=== PATIENT | female | born 1985 | race Hispanic/Latino ===

== ENCOUNTER 2016-10-01 06:39 | Day surgery (SDC) | payer OTHER ==
[2016-10-01] VITALS (7 sets, daily range): BP systolic 106–135; BP diastolic 51–88; PULSE 82–93; RESP 16–18; O2SAT 94–97
[~2016-10-01] VITALS: Ht 160 cm; Wt 101.5 kg
[~2016-10-01 06:39] MED LIST: CeFAZolin 2 Gm/50 mL D5W IV Premix IV ONE; Lactated Ringer's 1,000 ML IV SCH; PREN-75 PO
[2016-10-01] MEDS ORDERED: Phenylephrine/NS-PF 100 mCg/mL 5 mL Syringe IVPUSH ONE (06:40)
[2016-10-01] MEDS ORDERED: MetoCLOpramide 5 mg/mL 2 mL Inj ONE (06:40)
[2016-10-01] MEDS ORDERED: Dexamethasone 4 mg/mL Inj ONE (06:40)
[2016-10-01] MEDS ORDERED: Ondansetron 2 mg/mL 2 mL Inj ONE (06:40)
[2016-10-01] MEDS ORDERED: fentaNYL-PF 50 mCg/mL 2 mL Inj ONE (06:40)
[2016-10-01] MEDS ORDERED: Propofol 10,000 mCg/mL 20 mL Inj ONE (06:40)
[2016-10-01] MEDS ORDERED: Lactated Ringer's 1,000 ML IV ONE (07:39)
[2016-10-01] MEDS ORDERED: Lactated Ringer's 500 ML IV PRN (08:26)
[2016-10-01] MEDS ORDERED: Lactated Ringer's 1,000 ML IV SCH (08:26)
--- NOTE | 2016-10-01 08:26 | PCM.HPANE ---
Patient Data Surgeon Admitting Provider: Attending Provider:Luis Huber MD Primary Care Physician:Fela Post MD Other Provider:[facility] Reason for Visit Right Forehead Valeria Mass Ht/WT & BMI Height (Feet): 5 Height (Inches): 3 Weight (Kilograms): 101.51 Body Mass Index 39.00 Allergies Coded Allergies: No Known Allergies (Verified , 01/04/05) Past Anesthesia History Anesthesia History: Denies:: Abnormal Airway, Anesthesia Reactions (back pain after epidurals), Difficult Intubation, Fam Anesthesia Reaction, Fam Malignant Hypertherm, Malignant Hyperthermia Diabetes History Hx Diabetes?: No MRSA MRSA: No Medications Hypertension Medication: No Home Meds Incl Beta Phillip: No Reported Medications #103/Iron Fumarate/FA ( Tablet)1 Each Tablet1 Each PO DAILY 09/29/16 Discontinued Reported Medications Pnv95/Ferrous Fumarate/FA ( Multivitamins Tablet)1 Each Tablet1 Each PO DAILY 10/20/14 Discontinued Scripts [Ibuprofen] (Motrin)800 MG TABLET No Conflict [id number] Mg PO Q6H PRN For Pain # 60 TABLET Prov:Rohan Gupta MD 10/22/14 [Hydrocodone/Acetaminophen] ([place] 5-325)1 TAB TABLET No Conflict Check1-2 Tab PO Q4H PRN For Pain #10 TABLET Prov:Rohan Gupta MD 10/22/14 [Docusate Sodium] (Colace)100 MG CAPSULE No Conflict [id number] Mg PO BID #60 CAPSULE Prov:Rohan Gupta MD 10/22/14 History History of ENT Problems?: No HEENT History: Denies:: Abnormal Airway Cataracts Difficult Intubation Dysphagia Glaucoma Hearing Problem Sinus Problem Hx of Heart Problems?: No Cardiovascular History: Denies:: AICD Edema Heart Murmur Hypertension Irregular Heartbeat Pacemaker Hx of Respiratory Problem?: No Respiratory History: Denies:: Asthma COPD Emphysema Oxygen Administration Pneumonia Tuberculosis Use of C-PAP Machine Use of Inhalers / NEBS Hx Neurologic Problems?: No Neurological History: Denies:: CVA Dementia Headaches Multiple Sclerosis Parkinson's Disease Seizures TIA Hx of GI Problems?: Yes Gastrointestinal History: Positive for:: Gastroesphageal Reflux (indigestion off/on for last year) Denies:: Gall Bladder Disease Gastrointestinal Bleeding Heartburn Hepatitis Hiatal Hernia Liver Disease Rectal Bleeding Hx of Problems?: No Genitourinary History: Denies:: Kidney Stones Urinary Tract Infection Female Hx: Denies:: Currently Problems with Breasts? Skin History: Denies:: History Skin Disorders? Pressure Ulcers Hx Musculoskeletal Problems?: Yes Musculoskeletal History: Positive for:: Back Injury (back pain- ) Musculoskeletal Trauma (valeria mass forehead current admission problem) Denies:: Fibromyalgia Joint Replacement Myasthenia Gravis Osteoarthritis Systemic Lupus Hx of Psycho/Social Problems?: No Psycho Social History: Denies:: Anxiety Hx Depression Hx Surgeries?: No (none) Hx Any Other Health Problems?: Yes Other History: Denies:: Cancer Thyroid Disease History Blood Transfusions: Positive for:: Accept Blood Products? Denies:: Blood Transfusions Hx Diabetes: No Hx Alcohol Use: NoAlcoholic Drinks Per Day: rarelyHx Substance Use: No Smoking Status: Never Smoker Have You Smoked inLast 12 mo: No Stop/Bang S-Snoring: Do You Snore Loudly: Yes T-Tired: feel tired, fatigued: No O-Obsered: Observed not breath: No P-Blood Pressure: treated: No B- Body Mass Index > 35 kg/m2: No A- Age over 50: No N- Neck Large Circumference: No G- Gender Male: No DANY Total Score: 1 Risk Assessment Category Category 1A: Patient has history of documented sleep apnea, and HAS NOT received any narcotic, sedative or anesthesia administration during this stay. Category 1B: Patient has history of documented sleep apnea, and HAS received any narcotic , sedative or anesthesia administration during this stay Category 2: Patient has SUSPECTED Obstructive Sleep Apnea, and HAS received any narcotic , sedative or anesthesia administration during this stay. Category 3: Patient has SUSPECTED Obstructive Sleep Apnea and HAS NOT received narcotic, sedative or anesthesia administration during this stay. Category 4: Outpatient in Procedural Areas with known sleep apnea or who screen positive for High Risk via the STOP/BANG questionnaire. Exam Exam General Appearance: Alert, Oriented X3, Cooperative, No Acute Distress HEENT/AIRWAY: MP 2 Lungs: Clear to Auscultation Heart: Exam Unremarkable Plan Impression Patient chart reviewed, patient interviewed and anesthestic plan with risks, benefits, and alternatives discussed, and informed consent obtained. NPO Status: presume full stomach ASA Physical Status: ASA3 Severe Disease Anesthetic Plan: GA Bene/Risks/Altern/Consents: Yes HP Complete Prior to Induction: Yes Caio Apple MD Oct 01, 2016 07:35
[2016-10-01] MEDS ORDERED: EPHEDrine Sulfate 50 mg/mL Inj IVPUSH PRN (08:30)
[2016-10-01] MEDS ORDERED: Dexamethasone 4 mg/mL Inj IVPUSH PRN (08:30)
[2016-10-01] MEDS ORDERED: HYDROmorphone 1 mg/mL Inj IVPUSH PRN (08:30)
[2016-10-01] MEDS ORDERED: fentaNYL-PF 50 mCg/mL 2 mL Inj IVPUSH PRN (08:30)
[2016-10-01] MEDS ORDERED: MetoCLOpramide 5 mg/mL 2 mL Inj IVPUSH PRN (08:30)
[2016-10-01] MEDS ORDERED: Ondansetron 2 mg/mL 2 mL Inj IVPUSH PRN (08:30)
[2016-10-01] MEDS ORDERED: Phenylephrine 10,000 mCg/mL Inj IVPUSH PRN (08:30)
[2016-10-01] MEDS ORDERED: Bupivacaine-MPF 0.25%/EPI 30 mL Inj INJ ONE (08:53)
--- NOTE | 2016-10-01 09:27 | PCM.ANEP1 ---
Post Anesthesia Phase 1 PACU Phase 1 Assessment Vital Signs Vital Signs Date Time Temp Pulse Resp B/P Pulse Ox O2 Delivery O2 Flow Rate FiO2 10/01/16 07:40 36.9 93 17 125/72 97 Room Air Anesthetic Administered: GA Level of Alertness: Awake, talking GALEANO's with Equal Strength: Yes Pain: No Nausea or Vomiting: No Oxygen Delivery: Room Air Lungs: Clear to Auscultation Dermatome Level: Full Sensation Caio Apple MD Oct 01, 2016 09:27
[2016-10-01] MEDS ORDERED: HYDROcodone-APAP 5-325 mg Tablet PO PRN (09:35)
--- NOTE | 2016-10-01 10:16 | OP ---
[address] [address] OPERATIVE REPORT PATIENT: JOSH MERCEDES : 1985 MR#: [id number] ADMIT: 10/01/2016 JOB ID: [id number] DATE OF SURGERY: 10/01/2016 PREOPERATIVE DIAGNOSIS(ES): Right forehead mass. POSTOPERATIVE DIAGNOSIS(ES): Forehead bony mass, likely osteoma. PROCEDURE: 1. Excision of right forehead bony mass 1.5 cm. 2. Layered closure of right forehead defect, total length of layered closure 2 cm. SURGEON: Luis Huber MD DOFFER: None. ANESTHESIA: General anesthesia. ESTIMATED BLOOD LOSS: Minimal. COMPLICATIONS: None apparent. SPECIMEN: Right forehead mass to Pathology. INDICATIONS FOR PROCEDURE: This is a 31-year-old female patient with a slowly enlarging right forehead mass. The patient also has pain and headaches arising out of this mass. At this point, excision is indicated for tissue diagnosis and for symptom relief. PROCEDURES AND FINDINGS: The patient was identified in the preoperative area. The border of this mass was palpated and marked. The patient was then taken back to the operating room and placed supine on the operating table. Appropriate time-outs were taken. General anesthesia was induced smoothly. The patient was then prepped and draped in the usual sterile manner. Local anesthesia was then infiltrated to the surgical site consisting of 0.25% Marcaine with epinephrine. A transverse incision was then made just superior to this mass. The incision was approximately 2 cm long. The incision was then deepened down to the underlying frontalis muscle with electrocautery. I then elevated a small amount of the surrounding skin flap off of the frontalis muscle. The frontalis muscle was then split along its fiber with a pair of tenotomy scissors bluntly. The muscle was then retracted medially and laterally out of the way revealing a bony mass. I then dissected the periosteum off of this bony mass until it was completely clear. It was then removed using an osteotome. I osteotomized the mass circumferentially from various directions using a 1/2 inch osteotome until the mass was removed from the calvarium. This passed off to Pathology as a specimen. The area was then palpated. Using a 3/4 inch osteotome I smoothed out the contour to be free of any rough areas and ridges. Hemostasis was obtained with electrocautery. The area was then irrigated with copious amounts of saline solution. I checked the area to make sure no bony flecks were left. The frontalis muscle was then reapproximated with a 4-0 Monocryl [id number] suture. The incision was then reapproximated first with a layer of 4-0 Monocryl deep dermal suture followed by 4-0 Monocryl running subcuticular suture. The patient tolerated the procedure well. Needle count, sponge count and instrument counts were correct at the end of the procedure. The patient was extubated and transported to recovery in stable condition. Again the diameter of the bony mass removed was 1.5 cm. The length of layered closure was 2 cm.
--- NOTE | 2016-10-01 10:34 | PCM.ANEP2 ---
Post Anesthesia Evaluation ASA/CMS Post Anesthesia VS in Patient's Normal Range?: Yes Resp Stable; Airway Patent?: Yes CV Function & Hydration Stable: Yes Mental Status Recovered?: Yes Pain control Satisfactory?: Yes N/V Control Satisfactory?: Yes Caio Apple MD Oct 01, 2016 10:34
--- NOTE | 2016-10-06 11:38 | PATH ---
SURGICAL PATHOLOGY Attending Physician:Luis Huber CASE STATUS: Signed Out PATIENT NAME: JOSH MERCEDES PID: [id number] : 1985 DATE COLLECTED:10/01/2016 16:12 SPECIMEN: Mass, NOS CLINICAL HISTORY: RIGHT FOREHEAD BONY MASS A: RIGHT FOREHEAD MASS FINAL DIAGNOSIS: 1.RIGHT FOREHEAD MASS: DENSE LAMELLAR BONE, CONSISTENT WITH OSTEOMA. NEGATIVE FOR MALIGNANCY. ICD10 CODE D16.4 GROSS DESCRIPTION: The specimen is received in formalin, labeled with the patient's name, sublabeled as right forehead mass and consists of a alan-white solid hard mass (1.5 x 1.3 x 0.6 cm). The mass cannot be sliced with a scalpel. Ink code: black-resection margin. Section code: (A) mass, serially sectioned. Specimen entirely submitted. Note: The mass has been decalcified. 10/02/16 JM MICRO DESCRIPTION: See diagnosis. ICD-9 CODES: CPT CODES: 1: 45801, 95144 Electronically Signed Out Talya Payne MD [facility] [address], [place] [address] Technical component performed at [facility], [address] [place] [address] [address], [place], [address]
== END 2016-10-01 23:59 | disposition home or self-care (01) ==
LOC: SAS 06:39
PROVIDERS: ATTEND Plastic Surgery
DX: R22.0 Localized swelling, mass and lump, head (principal)
CPT/HCPCS: 21029; J0690; J1100; J2370; J2405; J2765; J7120